=== PATIENT | male | born 1995 | race Caucasian/White ===

== ENCOUNTER 2017-05-21 16:15 | Emergency (ER) | payer BC ==
[~2017-05-21] VITALS: Ht 172.7 cm; Wt 65.0 kg
[2017-05-21] MEDS ORDERED: IOHEXOL 350 MG/ML 10 ML VIAL (for RAD DIAG) IVCONTRAST ONE (16:16)
[2017-05-21 16:19] VITALS: BP 115/76; PULSE 84; RESP 28; TEMP 97.8; O2SAT 100
[2017-05-21] MEDS ORDERED: SODIUM CHLOR 0.9% 1000 ML INJ 1,000 ML IV SCH (16:35)
[2017-05-21] MEDS ORDERED: ONDANSETRON HCL 4 MG/2 ML VIAL ONE (16:36)
[2017-05-21] MEDS ORDERED: SODIUM CHLORIDE 0.9% FLUSH 10 ML FLUSH IV FLUSH PRN (16:45)
[2017-05-21] MEDS ORDERED: ONDANSETRON HCL 4 MG/2 ML VIAL IVP ONE (16:45)
[2017-05-21 17:11] LABS: AUTOMATED NEUTROPHIL # 11.7 TH/MM3 (1.8-7.7); BASOPHIL % 0.3 % (0.0-2.0); EOSINOPHIL # 0.1 TH/MM3 (0-0.4); EOSINOPHIL % 0.4 % (0.0-4.0); HEMO FLAGS DIFF FINAL; LYMPH % 15.6 % (9.0-44.0); LYMPHOCYTE # 2.3 TH/MM3 (1.0-4.8); MEAN CELL VOLUME 91.6 FL (80.0-100.0); MEAN CORPUSCULAR HEMOGLOBIN 31.3 PG (27.0-34.0); MEAN CORPUSCULAR HGB CONC 34.1 % (32.0-36.0); MONO % 4.6 % (0.0-8.0); NEUT % 79.1 % (16.0-70.0); PLATELET COUNT 198 TH/MM3 (150-450); RED BLOOD COUNT 5.35 MIL/MM3 (4.50-5.90); RED CELL DISTRIBUTION WIDTH 13.6 % (11.6-17.2); WHITE BLOOD COUNT 14.8 TH/MM3 (4.0-11.0)
[2017-05-21 17:18] LABS: ANION GAP 13 MEQ/L (5-15); BICARBONATE 22.7 MEQ/L (21.0-32.0); BLOOD UREA NITROGEN 16 MG/DL (7-18); CHLORIDE 102 MEQ/L (98-107); GLOMERULAR FILTRATION RATE 69 ML/MIN (>89); POTASSIUM 3.4 MEQ/L (3.5-5.1); SODIUM (NA) 138 MEQ/L (136-145)
[2017-05-21 17:19] LABS: APTT (PATIENT) 24.1 SEC (24.3-30.1); INTERNATIONAL NORMALIZED RATIO 1.1 RATIO; PROTHROMBIN TIME - PATIENT 11.8 SEC (9.8-11.6)
[2017-05-21 17:20] LABS: ALT (GPT) 26 U/L (9-52); AST (GOT) 22 U/L (15-39)
[2017-05-21 17:22] LABS: ALKALINE PHOSPHATASE 80 U/L (45-117)
--- NOTE | 2017-05-21 19:37 | PD ---
HPI Chief Complaint: GI Complaint Time Seen by Provider: 16:35 Travel History International Travel<30 days: No Contact w/Intl Traveler<30days: No Traveled to known affect area: No History of Present Illness HPI 21-year-old male patient presents to the ER today with several days' history of ongoing problems with nausea, vomiting, diarrhea, worsened today, not able to keep any food down. He is having upper abdominal pains headaches. He denies any fevers, no sick contacts. Pain is currently measures and 8 out of 10. Does not always exacerbating or alleviating factors. Modifying Factors: None Associated Signs & Symptoms: Nausea, vomiting, diarrhea, abdominal pain Risk Factors: None PFSH Past Medical History GERD: Yes Past Surgical History Surgical History: No Previous Surgery Social History Alcohol Use: No Tobacco Use: No Substance Use: No Allergies-Medications (Allergen,Severity, Reaction): Coded Allergies: No Known Allergies (Unverified , 05/21/17) Review of Systems Except as stated in HPI: all other systems reviewed are Neg Physical Exam Narrative GENERAL: Well-developed young white male patient currently in moderate distress. Awake and oriented 3. SKIN: Focused skin assessment warm/diaphoretic. HEAD: Atraumatic. Normocephalic. EYES: Pupils equal and round. No scleral icterus. No injection or drainage. ENT: No nasal bleeding or discharge. Mucous membranes pink and moist. NECK: Trachea midline. No JVD. CARDIOVASCULAR: Regular rate and rhythm. No murmur appreciated. RESPIRATORY: No accessory muscle use. Clear to auscultation. Breath sounds equal bilaterally. GASTROINTESTINAL: Abdomen soft, upper abdominal tenderness without guarding or rebound, nondistended. Hepatic and splenic margins not palpable. MUSCULOSKELETAL: No obvious deformities. No clubbing. No cyanosis. No edema. NEUROLOGICAL: Awake and alert. No obvious cranial nerve deficits. Motor grossly within normal limits. Normal speech. PSYCHIATRIC: Appropriate mood and affect; insight and judgment normal. Data Data Last Documented VS Vital Signs Date Time Temp Pulse Resp B/P (MAP) Pulse Ox O2 Delivery O2 Flow Rate FiO2 05/21/17 16:38 (89) 05/21/17 16:31 18 05/21/17 16:19 97.8 84 100 Orders Orders Complete Blood Count With Diff (05/21/17 16:24) Coag Profile (05/21/17 16:24) Urinalysis - C+S If Indicated (05/21/17 16:24) Lipase (05/21/17 16:35) Iv Access Insert/Monitor (05/21/17 16:35) Ecg Monitoring (05/21/17 16:35) Oximetry (05/21/17 16:35) Ondansetron Inj (Zofran Inj) (05/21/17 16:45) Sodium Chlor 0.9% 1000 Ml Inj (Ns 1000 M (05/21/17 16:35) Sodium Chloride 0.9% Flush (Ns Flush) (05/21/17 16:45) Ondansetron Inj (Zofran Inj) (05/21/17 16:36) Influenzae A/B Antigen (05/21/17 16:50) Comprehensive Metabolic Panel (05/21/17 16:45) Ct Abd/Pel W Iv Contrast(Rout) (05/21/17 17:34) Iohexol 350 Inj (Omnipaque 350 Inj) (05/21/17 16:16) Labs Laboratory Tests Test 05/21/17 16:35 05/21/17 16:45 White Blood Count 14.8 TH/MM3 Red Blood Count 5.35 MIL/MM3 Hemoglobin 16.7 GM/DL Hematocrit 49.0 % Mean Corpuscular Volume 91.6 FL Mean Corpuscular Hemoglobin 31.3 PG Mean Corpuscular Hemoglobin Concent 34.1 % Red Cell Distribution Width 13.6 % Platelet Count 198 TH/MM3 Mean Platelet Volume 11.6 FL Neutrophils (%) (Auto) 79.1 % Lymphocytes (%) (Auto) 15.6 % Monocytes (%) (Auto) 4.6 % Eosinophils (%) (Auto) 0.4 % Basophils (%) (Auto) 0.3 % Neutrophils # (Auto) 11.7 TH/MM3 Lymphocytes # (Auto) 2.3 TH/MM3 Monocytes # (Auto) 0.7 TH/MM3 Eosinophils # (Auto) 0.1 TH/MM3 Basophils # (Auto) 0.0 TH/MM3 CBC Comment DIFF FINAL Differential Comment Prothrombin Time 11.8 SEC Prothromb Time International Ratio 1.1 RATIO Activated Partial Thromboplast Time 24.1 SEC Blood Urea Nitrogen 16 MG/DL Creatinine 1.33 MG/DL Random Glucose 133 MG/DL Total Protein 8.6 GM/DL Albumin 4.8 GM/DL Calcium Level 10.0 MG/DL Alkaline Phosphatase 80 U/L Aspartate Amino Transf (AST/SGOT) 22 U/L Alanine Aminotransferase (ALT/SGPT) 26 U/L Total Bilirubin 1.0 MG/DL Sodium Level 138 MEQ/L Potassium Level 3.4 MEQ/L Chloride Level 102 MEQ/L Carbon Dioxide Level 22.7 MEQ/L Anion Gap 13 MEQ/L Estimat Glomerular Filtration Rate 69 ML/MIN Lipase 297 U/L MDM Medical Decision Making Medical Screen Exam Complete: Yes Emergency Medical Condition: Yes Medical Record Reviewed: Yes Interpretation(s) Laboratory Tests Test 05/21/17 16:35 05/21/17 16:45 White Blood Count 14.8 TH/MM3 (4.0-11.0) Mean Platelet Volume 11.6 FL (7.0-11.0) Neutrophils (%) (Auto) 79.1 % (16.0-70.0) Neutrophils # (Auto) 11.7 TH/MM3 (1.8-7.7) Prothrombin Time 11.8 SEC (9.8-11.6) Activated Partial Thromboplast Time 24.1 SEC (24.3-30.1) Creatinine 1.33 MG/DL (0.60-1.30) Random Glucose 133 MG/DL (74-106) Total Protein 8.6 GM/DL (6.4-8.2) Potassium Level 3.4 MEQ/L (3.5-5.1) Estimat Glomerular Filtration Rate 69 ML/MIN (>89) Differential Diagnosis Nausea, vomiting, abdominal pains, diarrhea: Gastroenteritis versus metabolic issues versus dehydration versus DKA versus acute intra-abdominal processes Narrative Course Patient was initially given IV fluids and Zofran. Lab work shows leukocytosis and CAT scan was ordered for further evaluation. No signs of elevation in glucose significant for DKA was seen. BUN/creatinine was fairly unremarkable. Diagnosis Primary Impression: Nausea and vomiting Disposition: 01 DISCHARGE HOME Condition: Stable Keira Ulloa MD May 21, 2017 19:37
[2017-05-21] MEDS ORDERED: DICYCLOMINE HCL 20 MG/2 ML VIAL IM ONE (20:00)
[2017-05-21] MEDS ORDERED: PROMETHAZINE INJ 25 MG/ML VIAL IM ONE (20:00)
--- NOTE | 2017-05-21 20:01 | RADRPT ---
EXAM DATE/TIME: 05/21/2017 18:34 [facility] COMPARISON: No previous studies available for comparison. INDICATIONS : Patient complains of abdominal pain with vomiting. IV CONTRAST: 70 cc Omnipaque 350 (iohexol) IV ORAL CONTRAST: No oral contrast ingested. RADIATION DOSE: 6.64 CTDIvol (mGy) MEDICAL HISTORY : reflux SURGICAL HISTORY : None. ENCOUNTER: Initial ACUITY: 1 day PAIN SCALE: 7/10 LOCATION: abdomen TECHNIQUE: Volumetric scanning of the abdomen and pelvis was performed. Using automated exposure control and ad justment of the mA and/or kV according to patient size, radiation dose was kept as low as reasonably achievable to obtain optimal diagnostic quality images. DICOM format image data is available electro nically for review and comparison. FINDINGS: LOWER LUNGS: The visualized lower lungs are clear. LIVER: Homogeneous density without lesion. There is no dilation of the biliary tree. No calcified gallston es. SPLEEN: Normal size without lesion. PANCREAS: Within normal limits. KIDNEYS: Normal in size and shape. There is no mass, stone or hydronephrosis. ADRENAL GLANDS: Within normal limits. VASCULAR: There is no aortic aneurysm. BOWEL/MESENTERY: The stomach, small bowel, and colon demonstrate no acute abnormality. There is no free intraperitone al air or fluid. The appendix is not identified. ABDOMINAL WALL: Within normal limits. RETROPERITONEUM: There is no lymphadenopathy. BLADDER: No wall thickening or mass. REPRODUCTIVE: Within normal limits. INGUINAL: There is no lymphadenopathy or hernia. MUSCULOSKELETAL: Within normal limits for patient age. CONCLUSION: Negative CT examination the abdomen and pelvis. No acute abnormality is seen. Ta Louie MD on May 21, 2017 at 19:57 Board Certified Radiologist. This report was verified electronically.
[2017-05-21] MEDS ORDERED: PROM25TA10 PO (20:59)
[2017-05-21] MEDS ORDERED: DICY10 PO (20:59)
[2017-05-21 21:06] LABS: BLOOD, URINE NEG (NEG); COMMENT (UR) CULT NOT INDICATED; CULTURE IF INDICATED CULT NOT INDICATED; GLUCOSE,URINE NEG (NEG); KETONE, URINE 80 mg/dL (NEG); MUCUS URINE FEW /lpf (OCC); NITRITE,URINE NEG (NEG); PH, URINE 7.5 (5.0-8.5); URINE COLOR YELLOW (YELLW/STRAW)
== END 2017-05-21 21:26 | disposition home or self-care (01) ==
LOC: NEPE 16:15
DX: R11.2 Nausea with vomiting, unspecified (principal); R19.7 Diarrhea, unspecified; R10.9 Unspecified abdominal pain
CPT/HCPCS: 74177; 80053; 81001; 83690; 85025; 85610; 85730; 87804; 96372; 96374; 99285; J0500; J2405; J2550; J7030; Q9967